=== PATIENT | female | born 2000 | race Caucasian/White ===

== ENCOUNTER 2023-04-19 13:49 | Emergency (ER) | payer OTHER ==
[2023-04-19] MEDS ORDERED: HYDROmorphone 1 MG/ML CARPUJECT IVP STA (15:45)
[2023-04-19] MEDS ORDERED: SODIUM CHLORIDE 0.9% 1,000 ML IV STA (15:46)
--- NOTE | 2023-04-19 15:48 | ED Physician Documentation ---
History of Present Illness - Stated complaint Stated Complaint: RT ABD PX - Chief complaint Chief Complaint: Abd Pain - Additonal information Additional information: 19-year-old female presents emergency department for evaluation of acute onset right-sided abdominal pain. Reports she was sitting on a couch when she stood up and felt a sharp pain just to the right and below her bellybutton. She has discomfort with positioning and often is guarding and holding her abdomen. Laying flat is quite tender. No falls or trauma. No history of similar. Denies possibility of . Review of Systems Constitutional: denies: Fever, Chills Throat: reports: Reviewed and negative Cardiac: reports: Reviewed and negative Respiratory: reports: Reviewed and negative GI: reports: Abdominal Pain. denies: Nausea, Vomiting : reports: Reviewed and negative Neurologic: reports: Reviewed and negative PD PAST MEDICAL HISTORY - Allergies Allergies/Adverse Reactions: Allergies Allergy/AdvReac Type Severity Reaction Status Date / Time No Known Drug Allergies Allergy Verified 04/19/23 13:51 PD ED PE NORMAL - General General: Alert and oriented X 3. No: No acute distress (Appears uncomfortable and in pain) - HEENT HEENT: Atraumatic - Neck Neck: Supple, no meningeal sign - Cardiac Cardiac: RRR, No murmur - Respiratory Respiratory: No respiratory distress, Clear bilaterally - Abdomen Abdomen: Normal bowel sounds, Soft. No: Non tender (Focal tenderness in the right lower quadrant of the abdomen with some guarding and rebound. None elicited midline or on the left abdomen) - Back Back: No CVA TTP - Derm Derm: Normal color, Warm and dry - Extremities Extremities: No deformity - Neuro Neuro: Alert and oriented X 3 Eye Opening: Spontaneous Motor: Obeys Commands Verbal: Oriented GCS Score: 15 Results - Vitals Vitals: Vital Signs - 24 hr 04/19/23 13:51 Temperature 37.0 C Heart Rate 67 Respiratory 16 Rate Blood Pressure 140/90 H O2 Saturation 98 Oxygen O2 Source Room air - Labs Labs: Laboratory Tests 04/19/23 04/19/23 04/19/23 15:50 15:50 15:55 WBC 7.7 RBC 4.59 Hgb 13.6 Hct 41.6 MCV 90.6 MCH 29.6 MCHC 32.7 RDW 12.1 Plt Count 440 MPV 8.5 Neut # (Auto) 4.1 Lymph # (Auto) 2.7 [place] # (Auto) 0.6 Eos # (Auto) 0.4 Baso # (Auto) 0.1 Absolute Nucleated RBC 0.00 Nucleated RBC % 0.0 Sodium Potassium Chloride Carbon Dioxide Anion Gap BUN Creatinine Estimated GFR (MDRD) Glucose Calcium Total Bilirubin AST ALT Alkaline Phosphatase Total Protein Albumin Globulin Albumin/Globulin Ratio Lipase Urine Color YELLOW Urine Clarity CLEAR Urine pH 6.5 Ur Specific Prole >=1.030 H Urine Protein NEGATIVE Urine Glucose (UA) NEGATIVE Urine Ketones NEGATIVE Urine Occult Blood NEGATIVE Urine Nitrite NEGATIVE Urine Bilirubin NEGATIVE Urine Urobilinogen 0.2 (NORMAL) Ur Leukocyte Esterase NEGATIVE Ur Microscopic Review NOT INDICATED Urine Culture Comments NOT INDICATED Urine HCG, Qual NEGATIVE 04/19/23 15:55 WBC RBC Hgb Hct MCV MCH MCHC RDW Plt Count MPV Neut # (Auto) Lymph # (Auto) [place] # (Auto) Eos # (Auto) Baso # (Auto) Absolute Nucleated RBC Nucleated RBC % Sodium 136 Potassium 3.6 Chloride 103 Carbon Dioxide 27 Anion Gap 6.0 BUN 13 Creatinine 0.7 Estimated GFR (MDRD) 104 Glucose 82 Calcium 9.5 Total Bilirubin 0.3 AST 15 ALT 12 Alkaline Phosphatase 90 Total Protein 8.2 Albumin 4.8 Globulin 3.4 Albumin/Globulin Ratio 1.4 Lipase 25 Urine Color Urine Clarity Urine pH Ur Specific Prole Urine Protein Urine Glucose (UA) Urine Ketones Urine Occult Blood Urine Nitrite Urine Bilirubin Urine Urobilinogen Ur Leukocyte Esterase Ur Microscopic Review Urine Culture Comments Urine HCG, Qual - Rads (name of study) CT abd Relevant Findings:: Final report received (No acute appearing abnormality identified with the abdomen or pelvis. 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 This seemed focal in the right lower quadrant. CBC and electrolytes and urinalysis were obtained and showed no acute findings. CT of the abdomen was negative. Pelvic ultrasound revealed right corpus luteal cyst but no evidence ovarian torsion. Clinically there is no acute surgical abdomen present today. I suspect she may have a mild muscle strain. She is discharged home in stable condition with usual emergent return precautions discussed for worsening symptoms. Departure - Departure Disposition: 01 Home, Self Care Clinical Impression: Right sided abdominal pain, Right ovarian cyst Condition: Stable Record reviewed to determine appropriate education?: Yes Comments: Alondra the CT of your abdomen did not show findings with appendicitis. The ultrasound of the ovary shows a small cyst but no evidence of torsion or twisting of the ovary. I do not think that the cyst is the cause of your pain. It is possible that you simply strained your abdominal muscle. The neck several days I would recommend that you take Tylenol or ibuprofen for discomfort. Return immediately to the ER if you are having any new or worsening symptoms. Forms: PCP List
[2023-04-19 16:02] LABS: BASOPHILS # (AUTO) 0.1 10^3/uL (0.0-0.1); BASOPHILS % (AUTO) 0.9 %; EOSINOPHILS # (AUTO) 0.4 10^3/uL (0.0-0.7); EOSINOPHILS % (AUTO) 4.5 %; HCT - HEMATOCRIT 41.6 % (37.0-47.0); HGB - HEMOGLOBIN 13.6 g/dL (12.0-16.0); LYMPHOCYTES # (AUTO) 2.7 10^3/uL (1.5-3.5); LYMPHOCYTES % (AUTO) 34.4 %; MEAN CORPUSCULAR HEMOGLOBIN 29.6 pg (27.0-31.0); MEAN CORPUSCULAR HGB CONC 32.7 g/dL (32.0-36.0); MEAN CORPUSCULAR VOLUME 90.6 fL (81.0-99.0); MEAN PLATELET VOLUME 8.5 fL (7.9-10.8); MONOCYTES # (AUTO) 0.6 10^3/uL (0.0-1.0); MONOCYTES % (AUTO) 7.4 %; NEUTROPHILS # (AUTO) 4.1 10^3/uL (1.5-6.6); NEUTROPHILS % (AUTO) 52.5 %; PLT - PLATELET COUNT 440 10^3/uL (130-450); RED BLOOD COUNT 4.59 10^6/uL (4.20-5.40); RED CELL DISTRIBUTION WIDTH 12.1 % (12.0-15.0); WHITE BLOOD COUNT 7.7 x10^3/uL (4.8-10.8)
[2023-04-19 16:08] LABS: BILIRUBIN,URINE NEGATIVE (NEGATIVE); GLUCOSE, URINE (UA) NEGATIVE (NEGATIVE); KETONES,URINE (UA) NEGATIVE (NEGATIVE); LEUKOCYTE ESTERASE, URINE NEGATIVE (NEGATIVE); NITRITE,URINE NEGATIVE (NEGATIVE); OCCULT BLOOD,URINE NEGATIVE (NEGATIVE); PH,URINE 6.5 PH (5.0-7.5); PROTEIN,URINE NEGATIVE (NEGATIVE); UROBILINOGEN,URINE 0.2 (NORMAL) E.U./dL (NORMAL)
[2023-04-19 16:09] LABS: CLARITY,URINE CLEAR (CLEAR)
[2023-04-19 16:19] LABS: ALBUMIN 4.8 g/dL (3.2-5.5); ALBUMIN/GLOBULIN RATIO 1.4 (1.0-2.2); BILIRUBIN,TOTAL 0.3 mg/dL (0.2-1.0); CALCIUM 9.5 mg/dL (8.5-10.3); CREATININE 0.7 mg/dL (0.6-1.3); POTASSIUM 3.6 mmol/L (3.5-4.5); TOTAL PROTEIN 8.2 g/dL (6.4-8.9)
[2023-04-19 16:48] LABS: HCG UR QUAL NEGATIVE
[2023-04-19] MEDS ORDERED: iohexoL-300 100 ML VIAL IVP ONE (17:41)
--- NOTE | 2023-04-19 18:12 | CT Report ---
PROCEDURE: ABDOMEN/PELVIS W INDICATIONS: RLQ Abdominal pain, appendicitis suspected CONTRAST: 100ml omni 300 TECHNIQUE: After the administration of intravenous contrast, 5 mm thick sections acquired from the diaphragms to the symphysis. 5 mm thick coronal and sagittal reformats were acquired. For radiation dose reducti on, the following was used: automated exposure control, adjustment of mA and/or kV according to shmuel ent size. COMPARISON: None FINDINGS: Visualized lung bases: No pleural effusion. Patchy centrilobular/tree-in-bud micronodularity right sanjay ng base. Liver and biliary tree: No suspect focal hepatic lesion. No biliary ductal dilation. Gallbladder: No radiopaque cholelithiasis. Spleen: Unremarkable. Pancreas: Unremarkable. Adrenal glands: Unremarkable. Kidneys and ureters: No hydronephrosis. Gastrointestinal tract: No bowel obstruction. No definite evidence of acute appendicitis. Peritoneal cavity: Small amount of pelvic free fluid, nonspecific. No free air. Bladder: Unremarkable. Pelvic organs: Right ovarian corpus luteum. Uterus and ovaries not well evaluated by CT. Vasculature: No abdominal aortic aneurysm. Musculoskeletal: No acute osseous abnormality. IMPRESSION: 1. No acute appearing abnormality identified within the abdomen or pelvis. 2. Right lower lobe opacities suggestive of aspiration and/or bronchopneumonia. Reviewed by: Rafiq De Leon MD on 04/19/2023 6:11 PM PDT Approved by: Rafiq De Leon MD on 04/19/2023 6:11 PM PDT Station ID: [id number]
--- NOTE | 2023-04-19 20:02 | Ultrasound Report ---
PROCEDURE: Pelvic w/Doppler Limited INDICATIONS: right LQ pain; ? ovarian cyst; r/o torsion TECHNIQUE: Real-time transabdominal scanning was performed of the right ovary, with image documentation. Dopple r interrogation was performed. COMPARISON: CT abdomen pelvis same day FINDINGS: Right ovary measures 4.6 x 3.1 x 4.4 cm, volume 32 cc. A 2.8 cm corpus luteum is present. Blood flow is visualized within the ovary on Doppler imaging. IMPRESSION: Redemonstrated right ovarian corpus luteum. No specific findings of ovarian torsion identified howeve r please note that ovarian torsion is a clinical diagnosis that can present with a spectrum of imagin g findings. Reviewed by: Rafiq De Leon MD on 04/19/2023 8:01 PM PDT Approved by: Rafiq De Leon MD on 04/19/2023 8:01 PM PDT Station ID: [id number]
[2023-04-19 20:23] VITALS: BP 128/88; O2SAT 100
== END 2023-04-19 20:15 | disposition home or self-care (01) ==
LOC: ED 13:49
DX: R10.31 Right lower quadrant pain (principal); N83.11 Corpus luteum cyst of right ovary
CPT/HCPCS: 36415; 74177; 76856; 80053; 81003; 81025; 83690; 85025; 93976; 96374; 99283; 99284; J1170; Q9967; 81001; 87086